=== PATIENT | male | born 1970 | race Caucasian/White ===

== ENCOUNTER 2021-08-10 13:36 | Inpatient (IN) | payer OTHER ==
[~2021-08-10] VITALS: Ht 188 cm; Wt 109.1 kg
[2021-08-10 14:55] LABS: BASOPHILS % (AUTO) 0.2 % (0-1); EOSINOPHILS # (AUTO) 0.1 X10'3 (0-0.9); EOSINOPHILS % (AUTO) 0.8 % (0-6); HEMATOCRIT 43.4 % (42.0-52.0); HEMOGLOBIN 15.3 g/dl (14.0-17.9); LYMPHOCYTES # (AUTO) 1.2 X10'3 (1.1-4.8); LYMPHOCYTES % (AUTO) 16.3 % (21-51); MEAN CORPUSCULAR HGB CONC 35.3 g/dL (33.0-36.5); MEAN CORPUSCULAR VOLUME 93.5 FL (78-98); MEAN PLATELET VOLUME 7.6 FL (7.4-10.4); MONOCYTES # (AUTO) 0.5 X10'3 (0-0.9); MONOCYTES % (AUTO) 7.6 % (2-12); NEUTROPHILS # (AUTO) 5.3 X10'3 (1.8-7.7); NEUTROPHILS % (AUTO) 75.1 % (42-75); PLATELET COUNT 235 X10'3 (140-440); RED BLOOD COUNT 4.64 X10'6 (4.70-6.10); RED CELL DISTRIBUTION WIDTH 12.6 % (11.5-14.5); WHITE BLOOD COUNT 7.1 X10'3 (4.5-11.0)
[2021-08-10 15:10] LABS: ALANINE AMINOTRANSFERASE 96 U/L (12-78); ALBUMIN 3.4 G/DL (3.4-5.0); ALBUMIN/GLOBULIN RATIO 0.8 (1.1-1.5); ALKALINE PHOSPHATASE 82 IU/L (46-116); ANION GAP 14 (8-16); ASPARTATE AMINO TRANSFERASE 88 U/L (10-37); BILIRUBIN,TOTAL 0.7 MG/DL (0.1-1.0); BLOOD UREA NITROGEN 32 MG/DL (7-18); BUN/CREATININE RATIO 18.1 (5.4-32.0); CALCIUM 9.4 MG/DL (8.5-10.1); CHLORIDE 98 MMOL/L (99-107); CREATININE 1.77 MG/DL (0.60-1.10); GLUCOSE 109 MG/DL (70-104); POTASSIUM 3.6 MMOL/L (3.5-5.1); SODIUM 137 MMOL/L (135-145); TOTAL CARBON DIOXIDE 24.9 MMOL/L (24-32); TOTAL PROTEIN 7.7 G/DL (6.4-8.2); eGFR 41 ML/MIN
[2021-08-10 15:11] LABS: D-DIMER 0.44 MG/L FEU (0-0.50)
[2021-08-10] MEDS ORDERED: normal saline 1000ml 1,000 ML IV ONE (15:15)
[2021-08-10] MEDS ORDERED: dexamethasone 4mg tablet PO ONE (15:15)
[2021-08-10 15:20] LABS: C-REACTIVE PROTEIN 5.87 MG/DL (0.0-0.5); LACTATE DEHYDROGENASE 331 U/L (85-227)
[2021-08-10] MEDS ORDERED: morphine 2 MG/ML inj. syringe IV PRN (15:40)
[2021-08-10] MEDS ORDERED: magnesium hydroxide 30ml (MOM) UD suspension PO PRN (15:40)
[2021-08-10] MEDS ORDERED: mag hydrox/Alum hydrox/simeth 30ml oral suspension PO PRN (15:40)
[2021-08-10] MEDS ORDERED: acetaminophen 325mg tablet PO PRN (15:40)
[2021-08-10] MEDS ORDERED: DEXAMETHASONE 6 MG TABLET PO ONE (15:45)
[2021-08-10] MEDS ORDERED: dexamethasone 4mg/ml inj IV SCH (16:00)
[2021-08-10] MEDS ORDERED: ACYC-1 PO (16:01)
[2021-08-10] MEDS ORDERED: MELO7.5T12 PO (16:01)
[2021-08-10] MEDS ORDERED: DICL100G30 TOP (16:01)
[2021-08-10] MEDS ORDERED: TRAZ-251 PO (16:01)
[2021-08-10] MEDS ORDERED: OMEP20CA15 PO (16:01)
[2021-08-10] MEDS ORDERED: LIDO700A32 TOP (16:01)
[2021-08-10] MEDS ORDERED: BUPR150T8 PO (16:01)
[2021-08-10] MEDS ORDERED: OXCA300T16 PO (16:01)
[2021-08-10] MEDS ORDERED: BUSP5TAB26 PO (16:01)
[2021-08-10] MEDS ORDERED: OMEG10006 PO (16:01)
[2021-08-10] MEDS ORDERED: ALLO100T25 PO (16:01)
[2021-08-10] MEDS ORDERED: MULT-1085 PO (16:01)
[2021-08-10] MEDS ORDERED: LITH450T2 PO ×2 (16:01)
[2021-08-10] MEDS ORDERED: CHOL400T27 PO (16:01)
[2021-08-10] MEDS ORDERED: LORA10TA7 PO (16:01)
[2021-08-10] MEDS ORDERED: LACT1CAP57 PO (16:01)
[2021-08-10] MEDS: dexamethasone inj 4 MG in normal saline 50ml IV soln 50 ML IV SCH (16:49)
[2021-08-10] MEDS ORDERED: traZODone 50mg tablet PO PRN (17:40)
--- NOTE | 2021-08-10 18:41 | NUR ---
Patient in room ED 4. I have received report from JEFF Ann and had the opportunity to ask questions and assume patient care.
[2021-08-10 19:16] VITALS: BP 130/70
[2021-08-10] MEDS: normal saline 1000ml 1,000 ML IV SCH (20:47)
[2021-08-10] MEDS: enoxaparin 40mg/0.4ml syringe SUBCUT SCH (20:56)
[2021-08-10] MEDS: benzonatate 100mg capsule PO PRN (20:56)
[2021-08-10] MEDS: guaiFENesin/DM 10ml UD oral syrup PO PRN (20:56)
[2021-08-10] MEDS: lactobacillus rhamnosus 10,000 MMU CELLS/CAPSULE PO SCH (20:57)
[2021-08-10] MEDS: busPIRone 5mg tablet PO SCH (20:57)
[2021-08-10] MEDS: buPROPion SR 150mg tablet PO SCH (20:57)
[2021-08-10] MEDS: OMEGA-3/DHA/EPA/FISH OIL 1 EACH CAPSULE.DR PO SCH ×2 (20:57→21:02)
[2021-08-10] MEDS: docusate sod 100mg capsule PO SCH (20:57)
[2021-08-10] MEDS: acyclovir 200 MG capsule PO SCH (20:57)
[2021-08-10 22:00] VITALS: BP 112/60
[2021-08-10] MEDS: oxcarbazepine 150mg tablet PO SCH (22:16)
[2021-08-10] MEDS: ondansetron/PF 4mg/2ml inj IV PRN (22:35)
[2021-08-11] MEDS: dexamethasone inj 4 MG in normal saline 50ml IV soln 50 ML IV SCH ×3 (00:19→15:28)
[2021-08-11] MEDS: benzonatate 100mg capsule PO PRN (04:59)
[2021-08-11] MEDS: ondansetron/PF 4mg/2ml inj IV PRN (04:59)
[2021-08-11] MEDS: guaiFENesin/DM 10ml UD oral syrup PO PRN (04:59)
[2021-08-11 06:00] VITALS: BP 107/65
--- NOTE | 2021-08-11 06:21 | NUR ---
Problems reprioritized. Patient report given, questions answered & plan of care reviewed with JEFF Quiles.
[2021-08-11] MEDS: acyclovir 200 MG capsule PO SCH ×2 (07:10→20:38)
[2021-08-11] MEDS: pantoprazole 40mg Tablet.DR PO SCH (07:11)
[2021-08-11] MEDS: multivitamins, therapeutics tablet PO SCH (07:11)
[2021-08-11] MEDS: lactobacillus rhamnosus 10,000 MMU CELLS/CAPSULE PO SCH ×2 (07:11→20:37)
[2021-08-11] MEDS: buPROPion SR 150mg tablet PO SCH ×2 (07:12→20:37)
[2021-08-11] MEDS: busPIRone 5mg tablet PO SCH ×2 (07:12→20:37)
[2021-08-11] MEDS: loratadine 10mg tablet PO SCH (07:13)
[2021-08-11] MEDS: enoxaparin 40mg/0.4ml syringe SUBCUT SCH ×2 (07:13→20:38)
[2021-08-11] MEDS: LIDOcaine 5% patch TP SCH (07:13)
[2021-08-11] MEDS: normal saline 1000ml 1,000 ML IV SCH (07:14)
[2021-08-11] MEDS: docusate sod 100mg capsule PO SCH ×2 (07:15→20:00)
[2021-08-11] MEDS: oxcarbazepine 150mg tablet PO SCH ×2 (07:15→20:00)
[2021-08-11] MEDS: OMEGA-3/DHA/EPA/FISH OIL 1 EACH CAPSULE.DR PO SCH ×2 (07:15→20:00)
[2021-08-11] MEDS: allopurinol 100mg tablet PO SCH (07:32)
[2021-08-11] MEDS ORDERED: lithium carbonate 450mg CR tablet PO SCH (08:00)
[2021-08-11] MEDS: lithium carbonate 450mg CR tablet PO SCH (08:00)
[2021-08-11 08:03] LABS: BASOPHILS % (AUTO) 0.1 % (0-1); EOSINOPHILS % (AUTO) 0.2 % (0-6); HEMATOCRIT 37.5 % (42.0-52.0); HEMOGLOBIN 13.7 g/dl (14.0-17.9); LYMPHOCYTES # (AUTO) 0.7 X10'3 (1.1-4.8); LYMPHOCYTES % (AUTO) 13.9 % (21-51); MEAN CORPUSCULAR HEMOGLOBIN 33.5 PG (27.0-31.0); MEAN CORPUSCULAR HGB CONC 36.5 g/dL (33.0-36.5); MEAN CORPUSCULAR VOLUME 91.6 FL (78-98); MEAN PLATELET VOLUME 7.8 FL (7.4-10.4); MONOCYTES # (AUTO) 0.3 X10'3 (0-0.9); MONOCYTES % (AUTO) 6.3 % (2-12); NEUTROPHILS % (AUTO) 79.5 % (42-75); PLATELET COUNT 230 X10'3 (140-440); RED CELL DISTRIBUTION WIDTH 12.7 % (11.5-14.5)
[2021-08-11 08:10] LABS: ALBUMIN 2.7 G/DL (3.4-5.0); ANION GAP 10 (8-16); BLOOD UREA NITROGEN 20 MG/DL (7-18); BUN/CREATININE RATIO 19.4 (5.4-32.0); CALCIUM 9.2 MG/DL (8.5-10.1); CHLORIDE 105 MMOL/L (99-107); CREATININE 1.03 MG/DL (0.60-1.10); GLUCOSE 131 MG/DL (70-104); SODIUM 138 MMOL/L (135-145); TOTAL CARBON DIOXIDE 22.7 MMOL/L (24-32); eGFR 76 ML/MIN
--- NOTE | 2021-08-11 09:55 | NUR ---
Malnutrition Consult: Pt admit DX COVID-19, bilateral PNA, and hypoxemia per EMR. PO 100% first regular diet meal, appears WD/WN per ER note, pending scaled wt this admit w/ no prior wt hx, normal strength, and no edema per EMR. Pt reports 2-13 pounds lost w/ decreased appetite; possibly some decrease in PO [employer] given DX though pt lacks minimum malnutrition criteria at this time. Will monitor for nutrition intervention needs and malnutrition criteria this admit. Addendum: 08/11/21 at [address] Amended: Links added.
[2021-08-11 10:00] VITALS: BP 106/67
[2021-08-11 10:19] LABS: BURR CELLS 1+; PLATELET ESTIMATE NORMAL; SPHEROCYTES 2+
--- NOTE | 2021-08-11 12:17 | NUR ---
Spoke to patient regarding Mili Zacarias, mom, being POA. He says she is POA, but is not sure where the paperwork is.
[2021-08-11 14:00] VITALS: BP 146/87
--- NOTE | 2021-08-11 18:21 | NUR ---
Problems reprioritized. Patient report given, questions answered & plan of care reviewed with Mindy AGUILAR.
[2021-08-11 19:00] VITALS: BP 135/69
[2021-08-11 22:00] VITALS: BP 118/63
[2021-08-12] MEDS: dexamethasone inj 4 MG in normal saline 50ml IV soln 50 ML IV SCH ×4 (00:11→23:19)
[2021-08-12 02:00] VITALS: BP 115/65
[2021-08-12 06:00] VITALS: BP 116/71
[2021-08-12] MEDS: buPROPion SR 150mg tablet PO SCH ×2 (07:18→19:47)
[2021-08-12] MEDS: loratadine 10mg tablet PO SCH (07:18)
[2021-08-12] MEDS: lactobacillus rhamnosus 10,000 MMU CELLS/CAPSULE PO SCH ×2 (07:18→19:47)
[2021-08-12] MEDS: lithium carbonate 450mg CR tablet PO SCH ×2 (07:18→11:37)
[2021-08-12] MEDS: acyclovir 200 MG capsule PO SCH ×2 (07:18→19:47)
[2021-08-12] MEDS: enoxaparin 40mg/0.4ml syringe SUBCUT SCH ×2 (07:19→19:45)
[2021-08-12] MEDS: busPIRone 5mg tablet PO SCH ×2 (07:19→19:47)
[2021-08-12] MEDS: multivitamins, therapeutics tablet PO SCH (07:19)
[2021-08-12] MEDS: pantoprazole 40mg Tablet.DR PO SCH (07:19)
[2021-08-12] MEDS: docusate sod 100mg capsule PO SCH ×2 (07:20→20:00)
[2021-08-12] MEDS: OMEGA-3/DHA/EPA/FISH OIL 1 EACH CAPSULE.DR PO SCH ×2 (07:20→20:00)
[2021-08-12] MEDS: LIDOcaine 5% patch TP SCH (07:20)
[2021-08-12] MEDS: oxcarbazepine 150mg tablet PO SCH ×2 (07:21→20:00)
[2021-08-12] MEDS: allopurinol 100mg tablet PO SCH (07:38)
[2021-08-12 08:06] LABS: ALBUMIN 2.9 G/DL (3.4-5.0); ANION GAP 12 (8-16); BLOOD UREA NITROGEN 16 MG/DL (7-18); BUN/CREATININE RATIO 16.3 (5.4-32.0); CHLORIDE 108 MMOL/L (99-107); CREATININE 0.98 MG/DL (0.60-1.10); GLUCOSE 147 MG/DL (70-104); POTASSIUM 3.8 MMOL/L (3.5-5.1); SODIUM 142 MMOL/L (135-145); TOTAL CARBON DIOXIDE 22.2 MMOL/L (24-32); eGFR 81 ML/MIN
[2021-08-12 08:10] LABS: BASOPHILS % (AUTO) 0.3 % (0-1); EOSINOPHILS % (AUTO) 0 % (0-6); HEMATOCRIT 38.8 % (42.0-52.0); HEMOGLOBIN 13.8 g/dl (14.0-17.9); LYMPHOCYTES % (AUTO) 13.9 % (21-51); MEAN CORPUSCULAR HGB CONC 35.5 g/dL (33.0-36.5); MEAN CORPUSCULAR VOLUME 93.1 FL (78-98); MEAN PLATELET VOLUME 8.5 FL (7.4-10.4); MONOCYTES # (AUTO) 0.6 X10'3 (0-0.9); MONOCYTES % (AUTO) 8.1 % (2-12); NEUTROPHILS # (AUTO) 5.6 X10'3 (1.8-7.7); NEUTROPHILS % (AUTO) 77.7 % (42-75); PLATELET COUNT 266 X10'3 (140-440); RED BLOOD COUNT 4.17 X10'6 (4.70-6.10); RED CELL DISTRIBUTION WIDTH 12.4 % (11.5-14.5); WHITE BLOOD COUNT 7.2 X10'3 (4.5-11.0)
[2021-08-12 10:00] VITALS: BP 120/66
--- NOTE | 2021-08-12 12:08 | NUR ---
O2 Sat at rest on room air:_91__% If below 89%: Recovery O2 Sat at rest on ___LPM:___%:___% via (mask/nasal cannula, etc..) No further documentation is necessary. If O2 Sat did not drop below 89% on room air,ambulate patient on room air. O2 Sat while ambulating on room air:_85__% Recovery O2 Sat while ambulating on __5_LPM:__88_% No further documentation is necessary. If patient does not drop below 89% while ambulating, he/she does not qualify for home O2. Addendum: 08/12/21 at 1234 by Etta Wilburn RN Disregard, inaccurate numbers
--- NOTE | 2021-08-12 12:33 | NUR ---
O2 Sat at rest on room air:_91__% If below 89%: Recovery O2 Sat at rest on ___LPM:___%:___% via (mask/nasal cannula, etc..) No further documentation is necessary. If O2 Sat did not drop below 89% on room air,ambulate patient on room air. O2 Sat while ambulating on room air:_85__% Recovery O2 Sat while ambulating on _5__LPM:_91__% No further documentation is necessary. If patient does not drop below 89% while ambulating, he/she does not qualify for home O2.
[2021-08-12 14:00] VITALS: BP 106/65
[2021-08-12 18:00] VITALS: BP 119/67
--- NOTE | 2021-08-12 18:05 | NUR ---
Problems reprioritized. Patient report given, questions answered & plan of care reviewed with Dionne AGUILAR.
--- NOTE | 2021-08-12 18:10 | NUR ---
Patient in room [facility]TH[facility] 4023. I have received report from Etta AGUILAR and had the opportunity to ask questions and assume patient care.
--- NOTE | 2021-08-12 19:09 | NUR ---
per patient he no longer takes the Trileptal that was on his medication reconciliation so I canceled it per nursing; but for some reason it took it off pt's medication reconciliation form.
[2021-08-12] MEDS: guaiFENesin/DM 10ml UD oral syrup PO PRN (19:45)
[2021-08-12 22:00] VITALS: BP 134/67
--- NOTE | 2021-08-12 23:30 | NUR ---
I asked pt about the color of his nail beds and he said " they have always been that color " the cap refill is <3seconds bilateral to the fingers.
[2021-08-13 02:00] VITALS: BP 132/86
--- NOTE | 2021-08-13 06:31 | NUR ---
Problems reprioritized. Patient report given, questions answered & plan of care reviewed with Rowan AGUILAR.
--- NOTE | 2021-08-13 06:37 | NUR ---
Patient in room ORTH[facility] 4023. I have received report from ra hines and had the opportunity to ask questions and assume patient care.
[2021-08-13 06:39] VITALS: BP 139/80
[2021-08-13 06:51] LABS: ALBUMIN 2.9 G/DL (3.4-5.0); ANION GAP 13 (8-16); BLOOD UREA NITROGEN 21 MG/DL (7-18); CHLORIDE 107 MMOL/L (99-107); GLUCOSE 127 MG/DL (70-104); POTASSIUM 3.8 MMOL/L (3.5-5.1); SODIUM 141 MMOL/L (135-145); TOTAL CARBON DIOXIDE 21.4 MMOL/L (24-32); eGFR 79 ML/MIN
[2021-08-13 07:26] LABS: BASOPHILS % (AUTO) 0.4 % (0-1); EOSINOPHILS % (AUTO) 0.1 % (0-6); HEMATOCRIT 38.7 % (42.0-52.0); HEMOGLOBIN 13.9 g/dl (14.0-17.9); LYMPHOCYTES # (AUTO) 1.2 X10'3 (1.1-4.8); LYMPHOCYTES % (AUTO) 11.6 % (21-51); MEAN CORPUSCULAR HEMOGLOBIN 33.4 PG (27.0-31.0); MEAN CORPUSCULAR HGB CONC 35.9 g/dL (33.0-36.5); MEAN CORPUSCULAR VOLUME 93.2 FL (78-98); MEAN PLATELET VOLUME 8.8 FL (7.4-10.4); MONOCYTES # (AUTO) 0.7 X10'3 (0-0.9); MONOCYTES % (AUTO) 6.6 % (2-12); NEUTROPHILS # (AUTO) 8.3 X10'3 (1.8-7.7); NEUTROPHILS % (AUTO) 81.3 % (42-75); PLATELET COUNT 297 X10'3 (140-440); RED BLOOD COUNT 4.15 X10'6 (4.70-6.10); RED CELL DISTRIBUTION WIDTH 12.3 % (11.5-14.5); WHITE BLOOD COUNT 10.2 X10'3 (4.5-11.0)
[2021-08-13 07:35] LABS: PLATELET ESTIMATE NORMAL; TOTAL CELLS COUNTED 100
[2021-08-13 07:36] LABS: BURR CELLS 1+; SPHEROCYTES 2+
[2021-08-13] MEDS: pantoprazole 40mg Tablet.DR PO SCH (07:37)
[2021-08-13] MEDS: multivitamins, therapeutics tablet PO SCH (07:37)
[2021-08-13] MEDS: allopurinol 100mg tablet PO SCH (07:37)
[2021-08-13] MEDS: busPIRone 5mg tablet PO SCH (07:37)
[2021-08-13] MEDS: docusate sod 100mg capsule PO SCH (07:37)
[2021-08-13] MEDS: lactobacillus rhamnosus 10,000 MMU CELLS/CAPSULE PO SCH (07:37)
[2021-08-13] MEDS: loratadine 10mg tablet PO SCH (07:37)
[2021-08-13] MEDS: lithium carbonate 450mg CR tablet PO SCH ×2 (07:38→12:46)
[2021-08-13] MEDS: buPROPion SR 150mg tablet PO SCH (07:38)
[2021-08-13] MEDS: acyclovir 200 MG capsule PO SCH (07:38)
[2021-08-13] MEDS: dexamethasone inj 4 MG in normal saline 50ml IV soln 50 ML IV SCH (07:38)
[2021-08-13] MEDS: LIDOcaine 5% patch TP SCH (07:38)
[2021-08-13] MEDS: enoxaparin 40mg/0.4ml syringe SUBCUT SCH (07:39)
[2021-08-13] MEDS: OMEGA-3/DHA/EPA/FISH OIL 1 EACH CAPSULE.DR PO SCH (07:51)
[2021-08-13] MEDS: oxcarbazepine 150mg tablet PO SCH (07:51)
[2021-08-13 10:11] VITALS: BP 136/84
[2021-08-13] MEDS ORDERED: DEC4T PO (12:05)
--- NOTE | 2021-08-13 13:52 | NUR ---
PT DISCHARGED IN STABLE CONDITION. LEFT FACILITY IN PRIVATE VEHICLE WITH DAD. IV DC. FOLLOW UP INSTRUCTIONS GIVEN, 02 EDUCATION GIVEN. PT WAS DC ON 4L NC. Addendum: 08/13/21 at 1354 by Joi Porras RN Amended: Links added.
== END 2021-08-13 13:39 | disposition home or self-care (01) | DRG 177 ==
LOC: ER 13:37 → ED HOLD 15:45 → ORTHO 4S 19:00
PROVIDERS: ADMIT Family Medicine; ATTEND Family Medicine
DX: U07.1 COVID-19 (principal); J12.82 Pneumonia due to coronavirus disease 2019; J96.01 Acute respiratory failure with hypoxia; N17.0 Acute kidney failure with tubular necrosis; F31.9 Bipolar disorder, unspecified; F17.210 Nicotine dependence, cigarettes, uncomplicated; Z96.643 Presence of artificial hip joint, bilateral; Z79.899 Other long term (current) drug therapy
CPT/HCPCS: 36415; 71045; 80048; 80053; 83615; 83880; 85007; 85008; 85025; 85379; 86140; 87081; 97116; 97161; 97530; 99285; G0378; J1100; J1650; J2270; J2405; J3490; J7030